=== PATIENT | female | born 1995 | race Caucasian/White ===

== ENCOUNTER 2022-07-03 09:18 | Inpatient (IN) | payer OTHER ==
[~2022-07-03] VITALS: Ht 167.6 cm; Wt 111.1 kg
[2022-07-03] MEDS ORDERED: BUTORPHANOL TARTRATE 2 MG/ML VIAL IV PRN (10:00)
[2022-07-03] MEDS ORDERED: METHYLERGONOVINE MALEATE 0.2 MG/ML IM PRN (10:15)
[2022-07-03] MEDS ORDERED: NALOXONE HCL 0.4 MG/ML 1ML VIAL IM PRN (10:15)
[2022-07-03] MEDS ORDERED: LIDOCAINE HCL 1% 20ML VIAL (Pyxis) INJ INFIL NR (10:15)
[2022-07-03 10:44] LABS: BASOPHILS % 0.5 % (0.0-2.0); EOSINOPHILS % 0.6 % (0.0-5.0); HEMATOCRIT. 35.5 % (36.0-48.0); HEMOGLOBIN. 11.8 g/dL (12.0-16.0); LYMPHOCYTES % 16.9 % (20.0-50.0); MEAN CORPUSCULAR HEMOGLOBIN 29.5 pg (28.0-32.0); MEAN CORPUSCULAR VOLUME 88.9 fL (81.0-99.0); MEAN PLATELET VOLUME 10.1 fl (7.4-10.4); MONOCYTES % 7.1 % (2.0-8.0); NEUTROPHILS % 74.9 % (40.0-76.0); PLATELET 248 x1000/uL (130-400); RED CELL DISTRIBUTION WIDTH 15.2 % (11.6-14.6)
[2022-07-03 10:44] LABS: CLARITY URINE CLOUDY (CLEAR); COLOR URINE YELLOW (YELLOW); KETONES URINE NEGATIVE (NEGATIVE); LEUKOCYTE ESTERASE URINE 2+ (NEGATIVE); NITRITE URINE NEGATIVE (NEGATIVE); OCCULT BLOOD URINE NEGATIVE (NEGATIVE); PROTEIN URINE NEGATIVE (NEGATIVE); SPECIFIC GRAVITY URINE 1.024 (1.005-1.030); UROBILINOGEN URINE 0.2 E.U./dL (0.2-1.0)
[2022-07-03] MEDS ORDERED: LABETALOL HCL 5MG/ML VIAL 20ML IV PRN ×3 (10:45)
[2022-07-03 10:57] LABS: PARTIAL THROMBOPLASTIN TIME 23.2 sec (23.4-31.0)
[2022-07-03 11:10] LABS: CHLORIDE 104 mEq/L (98-107)
[2022-07-03 11:17] LABS: *AMPHETAMINES SCREEN URINE NEGATIVE (NEGATIVE); *BARBITURATES SCREEN URINE NEGATIVE (NEGATIVE); *BENZODIAZEPINES SCREEN URINE NEGATIVE (NEGATIVE); *COCAINE SCREEN URINE NEGATIVE (NEGATIVE); CANNABINOID URINE SCREEN NEGATIVE (NEGATIVE); METHADONE URINE SCREEN NEGATIVE (NEGATIVE); OPIATES URINE SCREEN NEGATIVE (NEGATIVE); PHENCYCLIDINE URINE SCREEN NEGATIVE (NEGATIVE)
[2022-07-03] MEDS: LACTATED RINGERS 1,000 ML IV SCH ×2 (11:22→15:47)
[2022-07-03] MEDS ORDERED: PENICILLIN G POTASSIUM 5 MMU in DEXT 5% WATER 100 ML IV NR (11:30)
[2022-07-03 11:34] LABS: HEPATITIS B SURFACE ANTIGEN NEGATIVE
[2022-07-03] MEDS: MISOPROSTOL 100MCG TABLET PO SCH ×3 (13:42→22:02)
[2022-07-03] MEDS: LABETALOL HCL 100MG TABLET PO SCH ×2 (14:54→23:06)
[2022-07-03] MEDS: PENICILLIN G POTASSIUM 2.5 MMU in DEXTROSE 5% WATER 50 ML IV SCH ×3 (15:34→23:30)
[2022-07-04 00:58] LABS: BASOPHILS % 0.4 % (0.0-2.0); EOSINOPHILS % 1.4 % (0.0-5.0); HEMATOCRIT. 32.8 % (36.0-48.0); HEMOGLOBIN. 11.1 g/dL (12.0-16.0); LYMPHOCYTES % 20.7 % (20.0-50.0); MEAN CORPUSCULAR HEMOGLOBIN 30.2 pg (28.0-32.0); MEAN CORPUSCULAR VOLUME 89.2 fL (81.0-99.0); MEAN PLATELET VOLUME 9.6 fl (7.4-10.4); NEUTROPHILS % 67.5 % (40.0-76.0); PLATELET 217 x1000/uL (130-400); RED BLOOD CELL COUNT 3.68 mill/uL (4.2-5.4); RED CELL DISTRIBUTION WIDTH 15.4 % (11.6-14.6)
[2022-07-04 01:00] LABS: CHLORIDE 104 mEq/L (98-107)
[2022-07-04] MEDS: LACTATED RINGERS 1,000 ML IV SCH ×4 (01:07→20:17)
[2022-07-04 01:37] LABS: D-DIMER 0.74 mg/L FEU (<0.50); INR 0.9; PARTIAL THROMBOPLASTIN TIME 24.5 sec (23.4-31.0); PROTHROMBIN TIME 9.6 sec (9.6-11.0)
[2022-07-04] MEDS: MISOPROSTOL 100MCG TABLET PO SCH (02:02)
[2022-07-04] MEDS: PENICILLIN G POTASSIUM 2.5 MMU in DEXTROSE 5% WATER 50 ML IV SCH ×6 (05:32→23:30)
[2022-07-04] MEDS ORDERED: LIDOCAINE HCL 2%/EPINEPHRINE 1:100,000 20 ML VIAL INFIL ONE (09:21)
[2022-07-04 11:36] LABS: BASOPHILS % 0.3 % (0.0-2.0); EOSINOPHILS % 0.6 % (0.0-5.0); HEMATOCRIT. 33.7 % (36.0-48.0); HEMOGLOBIN. 11.2 g/dL (12.0-16.0); LYMPHOCYTES % 15.7 % (20.0-50.0); MEAN CORPUSCULAR HEMOGLOBIN 29.7 pg (28.0-32.0); MEAN PLATELET VOLUME 9.1 fl (7.4-10.4); MONOCYTES % 11.4 % (2.0-8.0); PLATELET 213 x1000/uL (130-400); RED BLOOD CELL COUNT 3.78 mill/uL (4.2-5.4); RED CELL DISTRIBUTION WIDTH 15.1 % (11.6-14.6)
[2022-07-04] MEDS ORDERED: ROPIVACAINE HCL/PF EPIDURAL 200 ML EPI ONE (12:21)
[2022-07-04] MEDS ORDERED: ROPIVACAINE HCL/PF EPIDURAL 200 ML EPI SCH (12:30)
[2022-07-04] MEDS: OXYTOCIN 30 UNITS/500ML NS PMX 500 ML IV SCH (13:03)
[2022-07-04 13:11] LABS: HIV SCREEN 4G Non Reactive (Non Reactive)
[2022-07-04] MEDS: LABETALOL HCL 100MG TABLET PO SCH (16:22)
[2022-07-05] MEDS: LABETALOL HCL 100MG TABLET PO SCH ×4 (00:03→23:58)
[2022-07-05] MEDS ORDERED: ROPIVACAINE HCL/PF EPIDURAL 200 ML EPI ONE (00:32)
[2022-07-05] MEDS: PENICILLIN G POTASSIUM 2.5 MMU in DEXTROSE 5% WATER 50 ML IV SCH ×2 (04:30→08:28)
[2022-07-05] MEDS: LACTATED RINGERS 1,000 ML IV SCH (04:40)
[2022-07-05] MEDS ORDERED: LIDOCAINE HCL 1% 20ML VIAL (Pyxis) INJ INFIL SCH (11:00)
[2022-07-05] MEDS ORDERED: MINERAL OIL 30ML BOTTLE PO NR (11:00)
[2022-07-05] MEDS: OXYTOCIN 30 UNITS/500ML NS PMX 500 ML IV SCH (12:01)
[2022-07-05] MEDS ORDERED: BENZOCAINE/LANOLIN/ALOE VERA SPRAY TOP PRN (14:45)
[2022-07-05] MEDS ORDERED: DIPHENHYDRAMINE 25MG CAPSULE PO PRN (14:45)
[2022-07-05] MEDS ORDERED: OXYTOCIN 30 UNITS/500ML NS PMX 500 ML IV SCH (14:45)
[2022-07-05] MEDS ORDERED: HEMORRHOIDAL SUPP PR PRN (14:45)
[2022-07-05] MEDS ORDERED: GLYCERIN/WITCH HAZEL LEAF MEDICATED PAD TOP PRN (14:45)
[2022-07-05] MEDS ORDERED: LANOLIN OINT 7GM TUBE TOP PRN (14:45)
[2022-07-05] MEDS ORDERED: IBUPROFEN 400MG TABLET PO PRN (14:45)
[2022-07-05] MEDS ORDERED: BISACODYL 10MG SUPP PR PRN (14:45)
[2022-07-05] MEDS ORDERED: RHO(D) IMMUNE GLOBULIN 300 MCG/SYR IM PRN (14:45)
[2022-07-05 15:45] VITALS: BP 135/88
[2022-07-05 16:45] VITALS: BP 148/100
[2022-07-05] MEDS: IBUPROFEN 800MG TABLET PO PRN (20:05)
[2022-07-05] MEDS: DOCUSATE SODIUM 100MG CAPSULE PO SCH (21:03)
[2022-07-05] MEDS: SIMETHICONE 80MG TABLET CHEW PO SCH (21:04)
[2022-07-05] MEDS: MAGNESIUM/ALUMINUM HYDROXIDE/SIMETHICONE 30ML UDC PO SCH (21:05)
[2022-07-05 21:14] VITALS: BP 138/101
[2022-07-06 00:02] VITALS: BP 124/89
[2022-07-06] MEDS ORDERED: LABE300T36 MT (04:49)
[2022-07-06 05:49] VITALS: BP 128/55
[2022-07-06 07:21] LABS: BASOPHILS % 0.1 % (0.0-2.0); EOSINOPHILS % 0.4 % (0.0-5.0); HEMATOCRIT. 27.3 % (36.0-48.0); HEMOGLOBIN. 9.2 g/dL (12.0-16.0); LYMPHOCYTES % 12.9 % (20.0-50.0); MEAN CORPUSCULAR HEMOGLOBIN 30.1 pg (28.0-32.0); MEAN CORPUSCULAR VOLUME 89.8 fL (81.0-99.0); MEAN PLATELET VOLUME 9.7 fl (7.4-10.4); MONOCYTES % 8.2 % (2.0-8.0); NEUTROPHILS % 78.4 % (40.0-76.0); PLATELET 180 x1000/uL (130-400); RED BLOOD CELL COUNT 3.04 mill/uL (4.2-5.4); RED CELL DISTRIBUTION WIDTH 15.3 % (11.6-14.6)
[2022-07-06] MEDS: MAGNESIUM/ALUMINUM HYDROXIDE/SIMETHICONE 30ML UDC PO SCH ×4 (07:30→20:01)
[2022-07-06 08:00] VITALS: BP 130/87
[2022-07-06] MEDS: SIMETHICONE 80MG TABLET CHEW PO SCH ×4 (08:00→20:01)
[2022-07-06] MEDS: PRENATAL VIT/FE FUMARATE/FA TABLET PO SCH (08:08)
[2022-07-06] MEDS: FERROUS SULFATE 325MG TABLET PO SCH ×3 (08:08→17:12)
[2022-07-06] MEDS: IBUPROFEN 800MG TABLET PO PRN ×2 (08:08→20:01)
[2022-07-06] MEDS: LABETALOL HCL 100MG TABLET PO SCH ×3 (08:09→23:47)
[2022-07-06 15:36] VITALS: BP 113/83
[2022-07-06 19:30] VITALS: BP 126/87
[2022-07-06] MEDS: DOCUSATE SODIUM 100MG CAPSULE PO SCH (20:01)
[2022-07-07 00:01] VITALS: BP 110/82
[2022-07-07 03:35] VITALS: BP 130/82
[2022-07-07] MEDS: IBUPROFEN 800MG TABLET PO PRN (03:39)
[2022-07-07] MEDS ORDERED: IBUP-2030 PO (06:57)
[2022-07-07] MEDS ORDERED: MULT-1021 MT (06:57)
[2022-07-07] MEDS ORDERED: FERR-63 PO (06:57)
[2022-07-07] MEDS ORDERED: MULT-1146 MT (06:57)
[2022-07-07 08:40] VITALS: BP 133/92
[2022-07-07] MEDS: FERROUS SULFATE 325MG TABLET PO SCH (08:42)
[2022-07-07] MEDS: PRENATAL VIT/FE FUMARATE/FA TABLET PO SCH (08:42)
[2022-07-07] MEDS: MAGNESIUM/ALUMINUM HYDROXIDE/SIMETHICONE 30ML UDC PO SCH (08:42)
[2022-07-07] MEDS: LABETALOL HCL 100MG TABLET PO SCH (08:43)
[2022-07-07] MEDS: SIMETHICONE 80MG TABLET CHEW PO SCH (08:43)
== END 2022-07-07 10:55 | disposition home or self-care (01) | DRG 560 ==
LOC: OBSVTOIN 09:18 → 8 EST LDRP 09:18 → 8EST 07-05 16:10
PROVIDERS: ADMIT Obstetrics & Gynecology; ATTEND Obstetrics & Gynecology
PROC: 10D07Z6 Extraction of Products of Conception, Vacuum, Via Natural or Artificial Opening (ICD-10-PCS; principal; 2022-07-04)
PROC: 0KQM0ZZ Repair Perineum Muscle, Open Approach (ICD-10-PCS; 2022-07-04)
DX: O13.4 Gestational [pregnancy-induced] hypertension without significant proteinuria, complicating childbirth (principal); Z37.0 Single live birth; Z68.39 Body mass index [BMI] 39.0-39.9, adult; O70.1 Second degree perineal laceration during delivery; O10.92 Unspecified pre-existing hypertension complicating childbirth; Z20.822 Contact with and (suspected) exposure to COVID-19; O99.214 Obesity complicating childbirth; O99.02 Anemia complicating childbirth; Z3A.37 37 weeks gestation of pregnancy
CPT/HCPCS: 36415; 76805; 76818; 80053; 80305; 80359; 81003; 84550; 85025; 85379; 85384; 86592; 86762; 86850; 86900; 87077; 87340; 87389; 87426; 99281; J2540; J2795; J3490; J7060; J7120; A4315; J2590